=== PATIENT | male | born 1950 | race Two or more races ===

== ENCOUNTER 2017-03-15 01:10 | Inpatient (IN) | payer OTHER, MEDICARE ==
[2017-03-15] VITALS (18 sets, daily range): BP systolic 96–139; BP diastolic 58–83
[~2017-03-15] VITALS: Ht 170.2 cm; Wt 98.4 kg
--- NOTE | 2017-03-15 01:10 | NUR ---
TO BED 1 BIB PARAMEDICS C/O RAPID HEART RATE 220'S GETTERING FILAMENT MACHINE OPERATOR. PT WAS GIVEN 6MG ADENOSINE FOLLOWED BY 12MG ADENOSINE BY EMS GETTERING FILAMENT MACHINE OPERATOR WITHOUT ANY RELIEF. RECEIVE PTAAOX2 NO ACUTE DISTRESS NOTED, RESP EVEN AND UNLABORED. PLACE PT ON CARDIAC MONITORING, CONTINUOUS POX. NOTED PT HR-224. ER MD AT BEDSIDE TO EVAL PT WITH ORDERS RECEIVED. RN AT BEDSIDE TO MEDICATE PT. SKIN HOT TO TOUCH, NONDIAPHORETIC. STARTED SL 18G TO RAC, BLOOD DRAWN AND SENT TO LAB. SL 18G TO R HAND GETTERING FILAMENT MACHINE OPERATOR. WILL CONTINUE TO MONITOR PT CLOSELY.
[2017-03-15] MEDS ORDERED: DILTIAZEM HCL 25 MG IV ONE ×2 (01:14→01:36)
[2017-03-15] MEDS ORDERED: ACETAMINOPHEN ES 500 MG TABLET ONE (01:26)
[2017-03-15] MEDS ORDERED: ASPIRIN 325 MG TABLET ONE (01:26)
[2017-03-15] MEDS ORDERED: IV NS 0.9% 1,000 ML BAG IV ONE ×2 (01:30→04:30)
[2017-03-15] MEDS ORDERED: LEVOFLOXACIN 750 MG /D5W 150ML 150 ML IV ONE ×2 (01:30→01:47)
[2017-03-15] MEDS ORDERED: DILTIAZEM HCL 25 MG IV IV ONE (01:30)
[2017-03-15] MEDS ORDERED: ACETAMINOPHEN ES 500 MG TABLET PO ONE (01:30)
[2017-03-15] MEDS ORDERED: ASPIRIN 81 MG TAB.CHEW PO ONE (01:30)
[2017-03-15] MEDS ORDERED: DILTIAZEM HCL IV 125 MG in IV D5W 100 ML IV PRN ×2 (01:30→07:00)
[2017-03-15] MEDS ORDERED: DILTIAZEM HCL 50 MG IV ONE (01:36)
[2017-03-15 01:37] LABS: EOSINOPHILS % (AUTO) 0.1 % (0.0-6.0); HEMATOCRIT 45 % (39-51); HEMOGLOBIN 14.8 g/dL (13.5-17.5); LYMPHOCYTES # (AUTO) 0.9 /CMM (0.8-4.8); MEAN CORPUSCULAR HEMOGLOBIN 29 PG (26.0-33.0); MEAN CORPUSCULAR HGB CONC 33 g/dl (31.0-36.0); MEAN CORPUSCULAR VOLUME 87 fL (80-96); MONOCYTES # (AUTO) 0.6 /CMM (0.1-1.30); MONOCYTES % (AUTO) 5.2 % (2.0-12.0); NEUTROPHILS # (AUTO) 10.9 /CMM (1.8-8.9); NEUTROPHILS % (AUTO) 87.7 % (43.0-81.0); PLATELET COUNT (AUTO) 158 /CMM (150-450); RDW COEFFICIENT OF VARIATION 13.1 (11.5-15.0); RED BLOOD CELL COUNT(AUTO) 5.14 MIL/uL (4.5-6.0); WHITE BLOOD COUNT (AUTO) 12.4 K/uL (4.3-11.0)
[2017-03-15 01:48] LABS: ALANINE AMINOTRANSFERASE 45 U/L (12-78); ALBUMIN 2.7 g/dL (3.4-5.0); ALKALINE PHOSPHATASE 58 U/L (46-116); ASPARTATE AMINOTRANSFERASE 72 U/L (15-37); BILIRUBIN,DIRECT 0.3 mg/dL (0.0-0.2); CALCIUM, SERUM 8.3 mg/dL (8.5-10.1); CARBON DIOXIDE 20 mmol/L (21-32); CHLORIDE 94 mmol/L (98-107); CREATININE 1.6 mg/dL (0.6-1.3); GLUCOSE 334 mg/dL (74-106); POTASSIUM 3.4 mmol/L (3.5-5.1); SODIUM SERUM 130 mmol/L (136-145); UREA NITROGEN, BLOOD 23 mg/dL (7-18)
[2017-03-15 01:49] LABS: TROPONIN I 0.082 ng/mL (0.00-0.056)
[2017-03-15] MEDS ORDERED: VANCOMYCIN 1 GM in IV D5W 250 ML IV ONE (02:00)
[2017-03-15] MEDS ORDERED: PIPERACILLIN /TAZOBACTAM 3.375 G in IV D5W 50 ML IV ONE (02:00)
--- NOTE | 2017-03-15 02:01 | NUR ---
PT TRANSPORTED TO RADIOLOGY FOR CT HEAD AND CT CERVICAL.
[2017-03-15 02:04] LABS: INR 1.42 (0.87-1.13); PROTHROMBIN TIME 14.8 SECS (9.5-12.7)
--- NOTE | 2017-03-15 02:14 | NUR ---
PT BACK FROM RADIOLOGY. PENDING CT RESULTS.
--- NOTE | 2017-03-15 02:29 | NUR ---
PT SON AT BEDSIDE.
[2017-03-15 02:56] LABS: ABG BASE EXCESS -5.2 mmol/L; ABG OXYGEN SATURATION 91.8 % (92.0-98.5); ABG PCO2 23.5 mmHg (35.0-45.0); ABG PH 7.463 (7.350-7.450); ABG PO2 64.3 mmHg (75.0-100.0); COHb 0.6 % (0.5-1.5); MetHb 0.5 % (0.0-1.5); O2Hb 90.8 % (94.0-97.0); SITE, ABG LEFT ARM; VENT MODE, BG Room Air
[2017-03-15] MEDS ORDERED: PIPERACILLIN /TAZOBACTAM 3.375 G VIAL IV ONE (03:28)
[2017-03-15] MEDS ORDERED: VANCOMYCIN 1 GM VIAL ONE (03:51)
--- NOTE | 2017-03-15 03:58 | NUR ---
NOTED PT WITH WATERY DIARRHEA, TOTAL PT CARE DONE. ER MD MADE AWARE OF WATERY DIARRHEA.
--- NOTE | 2017-03-15 04:27 | NUR ---
GARY GABRIEL AT BEDSIDE TO RE-EVAL PT.
--- NOTE | 2017-03-15 04:37 | NUR ---
BOBY EPRP CALLED.
[2017-03-15] MEDS ORDERED: OSELTAMIVIR PHOSPHATE 75 MG CAPSULE PO ONE (05:00)
--- NOTE | 2017-03-15 05:29 | NUR ---
GARY GABRIEL TALKING TO BOBY DANG MD.
[2017-03-15] MEDS ORDERED: OSELTAMIVIR PHOSPHATE 75 MG CAPSULE ONE (05:31)
--- NOTE | 2017-03-15 05:34 | NUR ---
REPORT GIVEN TO JOHNNY RODRIGUEZ FOR CONTINUATION OF CARE.
--- NOTE | 2017-03-15 05:35 | NUR ---
Moise reynolds in ED - 03/15/17 at 0538 by LEXIE GARY PALMA TO BOBY DANG MD.
--- NOTE | 2017-03-15 05:43 | NUR ---
SAMUEL VANG PAGED PER ER MD ORDER.
--- NOTE | 2017-03-15 06:35 | NUR ---
BLACK OFF WORKER INITIAL NOTE RECEIVED REPORT FROM ALLAN RODRIGUEZ. PT BEING ADMITTED FOR SEPSIS, NSTEMI. PT TRANSPORTED TO ICU BY ED. PT IN [facility]. A/A/O X3. LUNG SOUNDS DIMINISHED. BOWEL SOUNDS PRESENT, WITH DIARRHEA. IV PATENT AND INTACT. PULSES PRESENT. RLE REDNESS AND EDEMA NOTED. BLE SCABS NOTED. PICTURES TAKEN AND PLACED IN CHART. REPOSITIONED FOR COMFORT. BED IN LOW LOCKED POSITION. CALL LIGHT WITHIN REACH. WILL CONTINUE TO MONITOR.
[2017-03-15] MEDS ORDERED: DEXTROSE 50%-WATER 50 ML DISP.SYRIN IV PRN (07:00)
[2017-03-15] MEDS ORDERED: ONDANSETRON HCL/PF 4 MG/2 ML VIAL IVP PRN (07:00)
[2017-03-15] MEDS ORDERED: IV NS 0.9% 1,000 ML IV PRN (07:00)
[2017-03-15] MEDS ORDERED: MAGNESIUM HYDROXIDE 30 ML UDC PO PRN (07:00)
[2017-03-15] MEDS ORDERED: Z GUARD REMEDY 2 OZ OINT TP PRN (07:00)
--- NOTE | 2017-03-15 07:00 | NUR ---
[employer] SPANISH TEACHER DR LACY AT BEDSIDE. PER DR REGINO CARDOZA TO D/C CARDIJJ. WILL FOLLOW THROUGH WITH THIS ORDER.
--- NOTE | 2017-03-15 07:15 | NUR ---
RESTAURANT LINE COOK INITIAL NOTE RN RECEIVED PATIENT IN BED RESTING PATIENT ON 2L NASAL CANULA TOLERATING WELL WITHOUT ANY ISSUES PATIENT IS AXOX4 ABLE TO MAKE NEEDS KNOWN IV CLEAN DRY AND INTACT. PATIENT CLEANED DUE TO SATURATED DIAPER PATIENT HAS NO NAUSEA OR VOMITING NOTED. STILL EXPERIENCING CHILLS
[2017-03-15] MEDS ORDERED: ATOR10TA PO (07:31)
[2017-03-15] MEDS ORDERED: METF500T4 PO (07:31)
[2017-03-15] MEDS ORDERED: AMLO5TAB4 PO (07:31)
[2017-03-15] MEDS ORDERED: TRAM50TA2 PO (07:31)
[2017-03-15] MEDS ORDERED: WARF3TAB6 PO (07:31)
[2017-03-15] MEDS ORDERED: METO25TA20 PO (07:31)
[2017-03-15] MEDS ORDERED: MONT10TA22 PO (07:31)
[2017-03-15] MEDS ORDERED: ALBU18HF2 IH (07:31)
[2017-03-15] MEDS ORDERED: CLOB15OI3 TP (07:31)
[2017-03-15] MEDS ORDERED: BECL8.7A6 IH (07:31)
[2017-03-15] MEDS ORDERED: SECU150P SQ (07:31)
[2017-03-15] MEDS ORDERED: DICL100G16 TP (07:31)
[2017-03-15 08:14] LABS: BASOPHILS % (AUTO) 0.1 % (0.0-2.0); HEMATOCRIT 41 % (39-51); HEMOGLOBIN 13.7 g/dL (13.5-17.5); LYMPHOCYTES # (AUTO) 1.1 /CMM (0.8-4.8); LYMPHOCYTES % (AUTO) 7.2 % (20.0-44.0); MEAN CORPUSCULAR HEMOGLOBIN 29 PG (26.0-33.0); MEAN CORPUSCULAR HGB CONC 34 g/dl (31.0-36.0); MEAN CORPUSCULAR VOLUME 86 fL (80-96); MONOCYTES # (AUTO) 0.5 /CMM (0.1-1.30); MONOCYTES % (AUTO) 3.1 % (2.0-12.0); NEUTROPHILS # (AUTO) 13.2 /CMM (1.8-8.9); NEUTROPHILS % (AUTO) 89.6 % (43.0-81.0); PLATELET COUNT (AUTO) 137 /CMM (150-450); RED BLOOD CELL COUNT(AUTO) 4.74 MIL/uL (4.5-6.0); WHITE BLOOD COUNT (AUTO) 14.8 K/uL (4.3-11.0)
[2017-03-15 08:49] LABS: CALCIUM, SERUM 7.5 mg/dL (8.5-10.1); CREATININE 1.1 mg/dL (0.6-1.3); MAGNESIUM 1.5 mg/dL (1.8-2.4); PHOSPHORUS 2.6 mg/dL (2.5-4.9); POTASSIUM 3.4 mmol/L (3.5-5.1)
[2017-03-15 08:57] LABS: THYROID STIMULATING HORMONE 0.408 uIU/mL (0.358-3.74)
[2017-03-15 09:13] LABS: APPEARANCE,URINE CLEAR (CLEAR); BILIRUBIN,URINE NEGATIVE (NEGATIVE); BLOOD, URINE 3+ Ery/uL (NEGATIVE); COLOR,URINE YELLOW (YELLOW); KETONES,URINE NEGATIVE (NEGATIVE); LEUKOCYTE ESTERASE ,URINE NEGATIVE (NEGATIVE); NITRITE, URINE NEGATIVE (NEGATIVE); PROTEIN,URINE 2+ mg/dl (NEGATIVE); UGLUCOSE NEGATIVE (NEGATIVE); UROBILINOGEN,URINE 0.2 EU/dL (0.2)
[2017-03-15 09:53] LABS: BACTERIA,URINE None seen /HPF (None Seen); SQUAMOUS EPITHELIAL CELL,UR None Seen /HPF (None Seen); WBC,URINE NONE SEEN /HPF (0-3)
[2017-03-15] MEDS: FUROSEMIDE 40 MG/4 ML VIAL IV SCH ×3 (10:12→15:15)
[2017-03-15] MEDS: METOPROLOL TARTRATE 50 MG TABLET PO SCH ×2 (10:14→21:34)
[2017-03-15] MEDS: BLOOD SUGAR DIAGNOSTIC 1 EACH STRIP IN SCH ×4 (10:14→21:35)
[2017-03-15] MEDS ORDERED: FEE PK DOSING 1 MIN EA MC ONE (10:48)
[2017-03-15] MEDS: HEPARIN SODIUM, PORCINE 5000 UNITS/1 ML VIAL SQ SCH ×2 (10:52→21:35)
--- NOTE | 2017-03-15 11:16 | NUR ---
RN NOTE DELAY IN MEDICATION DUE TO MEDICATION NOT BEING AVALABKLE RN WILL ADMINISTER WHEN DRUG IS AVAILABLE
[2017-03-15] MEDS: PIPERACILLIN /TAZOBACTAM 3.375 G in IV D5W 50 ML IV SCH ×3 (11:54→21:34)
[2017-03-15] MEDS: DIGOXIN INJ 0.5 MG/2 ML AMPUL IV SCH ×2 (11:55→19:09)
[2017-03-15] MEDS: POTASSIUM CL. PREMIX PERIPHER. 50 ML IV SCH ×2 (13:30→14:30)
[2017-03-15] MEDS: Magnesium 1GM/D5W 100ML PREMIX 100 ML IV SCH ×4 (14:11→19:46)
[2017-03-15] MEDS: ACETAMINOPHEN 325 MG TABLET PO PRN ×2 (14:24→20:01)
[2017-03-15] MEDS: MENTHOL/CETYLPYRD (CEPACOL) 1 LOZ LOZENGE PO PRN ×2 (14:28→20:01)
[2017-03-15] MEDS: VANCOMYCIN 1 GM in IV D5W 250 ML IV SCH (17:00)
--- NOTE | 2017-03-15 19:35 | NUR ---
RN CLOSING NOTE PATIENT STABLE AT THIS TIME VITALS SIGNS ASSESS PATIENT TEMP WNL PATIENT COMPLAINED OF SORE THROAT NO NAUSEA OR VOMITING NOTED. PATIENT ABLE TO MAKE NEEDS KNOW CONTINUED CARE ENDORSED TO PM RN PATIENT HAS HAD MULTIPLE URINATION HOWEVER NO BM THIS SHIFT. PATIENT MEDICATION STILL PENDING AWAITING MEDICATION FROM PHARMACY
--- NOTE | 2017-03-15 20:02 | NUR ---
RN NOTE IV POTASSIUM NOT ADMINISTERED DUE TO MEDICATION NOT BEING AVAILABLE PRN CONTACTED PHARMACY , TRANS ROUTER STATES THAT SHE WILL SEND WHEN AVAILABLE RN ENDORSED TO PM RN
[2017-03-15] MEDS ORDERED: POTASSIUM CHLORIDE 20 MEQ TAB.PRT.SR PO ONE ×2 (20:05→20:30)
[2017-03-15] MEDS: ZOLPIDEM TARTRATE 5 MG TABLET PO PRN (20:21)
--- NOTE | 2017-03-15 21:00 | NUR ---
RN NOTE RECEIVED ORDERS FROM SAMUEL FELDER TO GIVE POTASSIUM 40 MEQ AND TO CANCEL POTASSIUM IV DUE TO DRUG NOT AVAILABLE. READBACK ORDERS PERFORMED AND ORDERS PLACED IN EMAR.
[2017-03-15] MEDS: INSULIN REGULAR, HUMAN 100 UNIT/ML 3 ML VIAL SQ PRN (21:36)
[2017-03-16] VITALS (9 sets, daily range): BP systolic 100–137; BP diastolic 58–86
[2017-03-16] MEDS: ACETAMINOPHEN 325 MG TABLET PO PRN (00:30)
[2017-03-16] MEDS: DIGOXIN INJ 0.5 MG/2 ML AMPUL IV SCH (00:31)
[2017-03-16] MEDS: PIPERACILLIN /TAZOBACTAM 3.375 G in IV D5W 50 ML IV SCH ×4 (04:25→22:12)
[2017-03-16] MEDS: VANCOMYCIN 1 GM in IV D5W 250 ML IV SCH (04:26)
--- NOTE | 2017-03-16 05:00 | NUR ---
RN NOTE RECEIVED ORDERS TO DOWNGRADE PT TO TELE. PT IN STABLE CONDITION TO BE IN TELE LEVEL OF CARE. READBACK ORDERS PERFORMED.
[2017-03-16 05:30] LABS: BASOPHILS % (AUTO) 0.1 % (0.0-2.0); EOSINOPHILS % (AUTO) 0.2 % (0.0-6.0); HEMATOCRIT 44 % (39-51); HEMOGLOBIN 14.4 g/dL (13.5-17.5); LYMPHOCYTES % (AUTO) 5.5 % (20.0-44.0); MEAN CORPUSCULAR HEMOGLOBIN 29 PG (26.0-33.0); MEAN CORPUSCULAR HGB CONC 33 g/dl (31.0-36.0); MEAN CORPUSCULAR VOLUME 88 fL (80-96); MONOCYTES # (AUTO) 0.8 /CMM (0.1-1.30); MONOCYTES % (AUTO) 4.2 % (2.0-12.0); NEUTROPHILS # (AUTO) 16.6 /CMM (1.8-8.9); PLATELET COUNT (AUTO) 127 /CMM (150-450); RDW COEFFICIENT OF VARIATION 13.1 (11.5-15.0); RED BLOOD CELL COUNT(AUTO) 4.96 MIL/uL (4.5-6.0); WHITE BLOOD COUNT (AUTO) 18.4 K/uL (4.3-11.0)
[2017-03-16 05:47] LABS: CALCIUM, SERUM 8.3 mg/dL (8.5-10.1); MAGNESIUM 2.5 mg/dL (1.8-2.4); PHOSPHORUS 2.1 mg/dL (2.5-4.9)
[2017-03-16 05:52] LABS: POTASSIUM 3.8 mmol/L (3.5-5.1)
--- NOTE | 2017-03-16 06:15 | NUR ---
RN NOTE PT TRANSFERRED TO TELE FLOOR IN STABLE CONDITION. REPORT GIVEN TO JULIO CÉSAR RN FOR CONTINUITY OF CARE. ALL NEEDS MET, ALL ORDERS CARRIED OUT.
--- NOTE | 2017-03-16 06:45 | NUR ---
RN NOTES RECEIVED PATIENT FROM ICU IN STABLE CONDITION, ALERT AND ORIENTED X3. VS STABLE. NO C/ O PAIN AT THIS TIME. PATIENT IS ON NC 2 L PM. TELE READING AFIB IN 70'S. IV ACCESS ON RAC 18 G AND RFA 20 G PATENT AND INTACT, NO REDNESS OR INFILTRATION NOTED.SKIN CLEAN AND DRY. BED IN LOW AND LOCKED POSITION, SIDE RAILS X2. CALL LIGHT WITHIN EASY REACH. WILL ENDORSE TO RN DAY SHIFT FOR SUJATHA.
[2017-03-16] MEDS: BLOOD SUGAR DIAGNOSTIC 1 EACH STRIP IN SCH ×4 (07:30→22:32)
--- NOTE | 2017-03-16 07:30 | NUR ---
RN NOTES BS 128. NO INSULIN ADMINISTERED PRN. CONTINUE TO MONITOR.
--- NOTE | 2017-03-16 07:30 | NUR ---
RIVETING MACHINE OPERATOR AUTOMATIC OPENING NOTES RECEIVED PATIENT IN STABLE CONDITION. IN NO APPARENT DISTRESS. BEDSIDE RAILS ARE UP X2. BED IS LOCKED AND LOWERED. WILL CONTINUE TO MONITOR. CALL LIGHT IS WITHIN REACH.
[2017-03-16] MEDS: INSULIN REGULAR, HUMAN 100 UNIT/ML 3 ML VIAL SQ PRN ×4 (07:31→22:53)
[2017-03-16] MEDS: METOPROLOL TARTRATE 50 MG TABLET PO SCH ×2 (09:15→22:17)
[2017-03-16] MEDS: HEPARIN SODIUM, PORCINE 5000 UNITS/1 ML VIAL SQ SCH ×3 (09:17→22:32)
[2017-03-16] MEDS: ALBUTEROL FS 2.5 MG/0.5 ML VIAL.NEB NEB PRN (13:18)
[2017-03-16] MEDS: IPRATROPIUM NEB FS 0.5 MG/2.5 ML AMPUL.NEB NEB PRN (13:18)
[2017-03-16] MEDS ORDERED: K PHOS NEUTRAL 250 MG TABLET PO ONE (13:30)
[2017-03-16] MEDS: LACTOBACILLUS RHAMNOSUS GG 1 EACH CAP.SPRINK PO SCH (17:02)
[2017-03-16] MEDS: DIGOXIN 0.125 MG TABLET PO SCH (17:02)
[2017-03-16] MEDS: HYDROCODONE/APAP 5/325MG 1 EACH TABLET PO PRN (17:04)
--- NOTE | 2017-03-16 19:00 | NUR ---
MS RN CLOSING NOTES PATIENT IS IN STABLE CONDITION. IN NO APPARENT DISTRESS. BEDSIDE RAILS ARE UP X2. BED IS LOCKED AND LOWERED. WILL ENDORSE CARE TO CLEANER AND TRIMMER NURSE FOR SUJATHA.
--- NOTE | 2017-03-16 19:20 | NUR ---
PHYSICIAN SCIENTIST OPENING NOTES RECEIVED PATIENT IN STABLE CONDITION. NO DISTRESS NOR SOB NOTED. BEDSIDE RAILS ARE UP X2. BED IS LOCKED AND LOWERED. WILL CONTINUE TO MONITOR. CALL LIGHT IS WITHIN REACH.
[2017-03-17 00:01] VITALS: BP 122/70
[2017-03-17] MEDS ORDERED: INSULIN REGULAR, HUMAN 100 UNIT/ML 3 ML VIAL ONE (00:15)
[2017-03-17] MEDS: IPRATROPIUM NEB FS 0.5 MG/2.5 ML AMPUL.NEB NEB PRN ×3 (01:26→13:50)
[2017-03-17] MEDS: ALBUTEROL FS 2.5 MG/0.5 ML VIAL.NEB NEB PRN ×3 (01:26→13:50)
[2017-03-17] MEDS: PIPERACILLIN /TAZOBACTAM 3.375 G in IV D5W 50 ML IV SCH ×4 (03:31→21:23)
[2017-03-17 04:00] VITALS: BP 115/77
[2017-03-17] MEDS: VANCOMYCIN 1.25 GM in IV D5W 500 ML IV SCH ×2 (06:21→17:13)
[2017-03-17] MEDS: BLOOD SUGAR DIAGNOSTIC 1 EACH STRIP IN SCH ×4 (06:28→21:43)
[2017-03-17] MEDS: INSULIN REGULAR, HUMAN 100 UNIT/ML 3 ML VIAL SQ PRN ×3 (06:30→17:17)
[2017-03-17 06:45] LABS: BASOPHILS % (AUTO) 0.3 % (0.0-2.0); EOSINOPHILS # (AUTO) 0.1 /CMM (0.0-0.7); EOSINOPHILS % (AUTO) 0.7 % (0.0-6.0); HEMATOCRIT 39 % (39-51); HEMOGLOBIN 14.3 g/dL (13.5-17.5); LYMPHOCYTES # (AUTO) 1.1 /CMM (0.8-4.8); LYMPHOCYTES % (AUTO) 7.1 % (20.0-44.0); MEAN CORPUSCULAR HEMOGLOBIN 33 PG (26.0-33.0); MEAN CORPUSCULAR HGB CONC 37 g/dl (31.0-36.0); MEAN CORPUSCULAR VOLUME 88 fL (80-96); MONOCYTES # (AUTO) 0.9 /CMM (0.1-1.30); MONOCYTES % (AUTO) 5.6 % (2.0-12.0); NEUTROPHILS # (AUTO) 13.6 /CMM (1.8-8.9); NEUTROPHILS % (AUTO) 86.3 % (43.0-81.0); PLATELET COUNT (AUTO) 139 /CMM (150-450); RDW COEFFICIENT OF VARIATION 13.3 (11.5-15.0); RED BLOOD CELL COUNT(AUTO) 4.38 MIL/uL (4.5-6.0); WHITE BLOOD COUNT (AUTO) 15.7 K/uL (4.3-11.0)
--- NOTE | 2017-03-17 06:48 | NUR ---
CREDIT RATING CHECKER NOTES PT IS RESTING COMFORTABLY AT THIS TIME, AROUSES EASILY, PT IS A/O X3. NO SOB OR SIGNS OF DISTRESS NOTED. BREATHING IS EVEN AND UNLABORED. PT DENIES ANY PAIN AT THIS TIME. IV SITES PATENT AND INTACT. NO REDNESS OR SIGNS OF INFILTRATION NOTED. BED IN LOW LOCKED POSITION, SIDE RAILS UP X2, CALL LIGHT WITHIN REACH. WILL ENDORSE TO NEXT SHIFT FOR SUJATHA.
[2017-03-17 07:10] LABS: DIGOXIN 0.64 ng/mL (0.90-2.00)
--- NOTE | 2017-03-17 07:10 | NUR ---
ORACLE BRM DEVELOPER OPENING NOTES RECEIVED PT FROM NIGHTSHIFT NURSE IN STABLE CONDITION. PT IS A/O X3. NO SOB OR SIGNS OF DISTRESS NOTED. BREATHING IS EVEN AND UNLABORED. PT DENIES ANY PAIN AT THIS TIME. HE IS AFIB ON THE TELE MONITOR WITH A HR OF 92. MULTIPLE IV NOTED TO RIGHT AC AND RIGHT HAND. IVS ARE PATENT AND INTACT. NO REDNESS OR SIGNS OF INFILTRATION NOTED TO EITHER. BED IN LOW LOCKED POSITION, SIDE RAILS UP X2, CALL LIGHT WITHIN REACH. WILL CONTINUE TO MONITOR
[2017-03-17 07:13] LABS: CALCIUM, SERUM 8.3 mg/dL (8.5-10.1); CREATININE 0.9 mg/dL (0.6-1.3); MAGNESIUM 1.7 mg/dL (1.8-2.4); PHOSPHORUS 1.9 mg/dL (2.5-4.9)
[2017-03-17 07:22] LABS: POTASSIUM 3.5 mmol/L (3.5-5.1)
[2017-03-17 08:00] VITALS: BP 115/77
[2017-03-17] MEDS: MENTHOL/CETYLPYRD (CEPACOL) 1 LOZ LOZENGE PO PRN ×3 (08:52→16:10)
[2017-03-17] MEDS: LACTOBACILLUS RHAMNOSUS GG 1 EACH CAP.SPRINK PO SCH ×2 (08:53→16:10)
[2017-03-17] MEDS: METOPROLOL TARTRATE 50 MG TABLET PO SCH ×2 (08:54→21:23)
[2017-03-17] MEDS: HEPARIN SODIUM, PORCINE 5000 UNITS/1 ML VIAL SQ SCH ×2 (09:00→21:22)
--- NOTE | 2017-03-17 11:20 | NUR ---
RN MS NOTES, RECEIVED PATIENT FROM MS FLOOR AFTER RECEIVED REPORT FROM MEEK RODRIGUEZ, PATIENT A/O X 3, ABLE TO COMMUNICATE NEEDS AND CONCERNS, BREATHING EVEN AND UNLABORED, NO SOB OR ACUTE DISTRESS NOTED AT THIS TIME, ON O2 @ 2LPM VIA NC, IN STABLE CONDITION ACCOMPANIED BY 2 STAFF, UPON ASSESSMENT NOTED WITH BLE CELLULITIS, MORE PROMINENT IN RIGHT LEG, KEPT DRY AND CLEAN, BED LOCKED AND LOWEST POSITION, IV SITE INTACT AND PATENT, CALL LIGHT W/I REACH, WILL CONTINUE TO MONITOR CLOSELY VS 112/72, 98.6, 81, 20, 96%, @ 2LPM VIA NC, .
[2017-03-17] MEDS: DIGOXIN 0.125 MG TABLET PO SCH (12:35)
[2017-03-17] MEDS: Magnesium 1GM/D5W 100ML PREMIX 100 ML IV SCH ×2 (13:06→14:27)
[2017-03-17] MEDS ORDERED: K PHOS NEUTRAL 250 MG TABLET PO ONE ×2 (14:30→15:00)
[2017-03-17 16:00] VITALS: BP 123/75
[2017-03-17] MEDS ORDERED: VITAMINS A AND D 56.7 GM TUBE TP PRN (16:30)
[2017-03-17] MEDS: MUPIROCIN OINT 2% 22 GM TUBE TP SCH (18:48)
[2017-03-17] MEDS: HYDROCODONE/APAP 5/325MG 1 EACH TABLET PO PRN (18:51)
--- NOTE | 2017-03-17 19:25 | NUR ---
MS RN CLOSING NOTES PT REMAINS IN STABLE CONDITION. ALL NEEDS MET DURING SHIFT AND ORDERS CARRIED OUT ACCORDINGLY. ALL DUE MEDS GIVEN. SAFETY MEASURES REMAIN IN PLACE. WILL ENDORSE TO NIGHTSHIFT NURSE FOR SUJATHA
--- NOTE | 2017-03-17 19:30 | NUR ---
SALES CORRESPONDENCE CLERK NOTE, RECEIVED PATIENT AWAKE AND IN BED, PATIENT HAS COMPLAINT OF RIGHT LOWER LEG PAIN AT 5 OUT 10 ON THE PAIN SCALE. PATIENT IS TAKING ORAL PAIN MEDICATION FOR THIS PAIN. PATIENT BREATHING IS UNLABORED WITH EQUAL RISE AND FALL OF THE CHEST. PATIENT IS ALERT AND ORIENTED X 3 ON ROOM AIR WITH A SPOO2 99 %. PATIENT HAS RIGHT AC 18 GAUGE SALINE LOCK THAT IS INTACT, PATENT, AND FLUSHING WELL WITH NO S/S OF INFILTRATION. PATIENT ASSISTED WITH TURNING AND REPOSITIONING Q2HR AND PRN FOR COMFORT AND CIRCULATION. PATIENT HAS NO NEEDS AT THIS TIME. PATIENT EDUCATED ON THE USE OF THE CALL LIGHT. PATIENT BED SIDE RAILS UP X 2 FOR SAFETY. PATIENT BED IS LOCKED AND LOW WILL CONTINUE TO MONITOR AND MAINTAIN SAFETY Q15 MIN WITH THE HELP OF STAFF.
[2017-03-17 20:55] VITALS: BP 111/62
--- NOTE | 2017-03-17 21:42 | NUR ---
SLAG EXPANDER NOTE, PERFORMED ACCU CHECK ON PATIENT WITH A BLOOD SUGAR RESULT OF 125 NO INSULIN GIVEN PER SLIDING SCALE. WILL CONTINUE TO MONITOR THIS PATIENT.
--- NOTE | 2017-03-17 23:15 | NUR ---
BUNCH BREAKER NOTE, PATIENT AWAKE AND IN BED, PATIENT HAS COMPLAINT OF RIGHT LOWER LEG PAIN AT 3 OUT 10 ON THE PAIN SCALE. PATIENT IS TAKING ORAL PAIN MEDICATION FOR THIS PAIN. PATIENT BREATHING IS UNLABORED WITH EQUAL RISE AND FALL OF THE CHEST. PATIENT IS ALERT AND ORIENTED X 3 ON ROOM AIR WITH A SPOO2 99 %. PATIENT HAS RIGHT AC 18 GAUGE SALINE LOCK THAT IS INTACT, PATENT, AND FLUSHING WELL WITH NO S/S OF INFILTRATION. PATIENT ASSISTED WITH TURNING AND REPOSITIONING Q2HR AND PRN FOR COMFORT AND CIRCULATION. PATIENT HAS NO NEEDS AT THIS TIME. PATIENT TRANSFERRED TO ROOM 106-1 IN SABLE CONDITION. REPORT GIVEN KANIKA RODRIGUEZ. KANIKA RODRIGUEZ WILL CONTINUE CARE FOR THIS PATIENT.
[2017-03-18] MEDS: HYDROCODONE/APAP 5/325MG 1 EACH TABLET PO PRN (00:55)
[2017-03-18] MEDS: ZOLPIDEM TARTRATE 5 MG TABLET PO PRN (00:59)
[2017-03-18] MEDS: PIPERACILLIN /TAZOBACTAM 3.375 G in IV D5W 50 ML IV SCH ×4 (03:28→21:26)
[2017-03-18 04:31] LABS: BASOPHILS # (AUTO) 0.1 /CMM (0.0-0.2); BASOPHILS % (AUTO) 0.5 % (0.0-2.0); EOSINOPHILS # (AUTO) 0.5 /CMM (0.0-0.7); EOSINOPHILS % (AUTO) 3.4 % (0.0-6.0); HEMATOCRIT 39 % (39-51); HEMOGLOBIN 13.1 g/dL (13.5-17.5); LYMPHOCYTES # (AUTO) 1.6 /CMM (0.8-4.8); LYMPHOCYTES % (AUTO) 10.3 % (20.0-44.0); MEAN CORPUSCULAR HEMOGLOBIN 29 PG (26.0-33.0); MEAN CORPUSCULAR HGB CONC 33 g/dl (31.0-36.0); MEAN CORPUSCULAR VOLUME 88 fL (80-96); MONOCYTES # (AUTO) 1.1 /CMM (0.1-1.30); MONOCYTES % (AUTO) 6.7 % (2.0-12.0); NEUTROPHILS # (AUTO) 12.5 /CMM (1.8-8.9); NEUTROPHILS % (AUTO) 79.1 % (43.0-81.0); PLATELET COUNT (AUTO) 185 /CMM (150-450); RDW COEFFICIENT OF VARIATION 12.9 (11.5-15.0); RED BLOOD CELL COUNT(AUTO) 4.45 MIL/uL (4.5-6.0); WHITE BLOOD COUNT (AUTO) 15.8 K/uL (4.3-11.0)
[2017-03-18] MEDS: MUPIROCIN OINT 2% 22 GM TUBE TP SCH ×2 (04:37→16:30)
[2017-03-18 04:59] LABS: CALCIUM, SERUM 8.2 mg/dL (8.5-10.1); CREATININE 0.9 mg/dL (0.6-1.3); MAGNESIUM 1.9 mg/dL (1.8-2.4); PHOSPHORUS 3.1 mg/dL (2.5-4.9)
[2017-03-18 05:13] LABS: POTASSIUM 3.4 mmol/L (3.5-5.1)
[2017-03-18] MEDS: VANCOMYCIN 1.25 GM in IV D5W 500 ML IV SCH (06:20)
[2017-03-18 07:27] LABS: CALCIUM, SERUM 8.2 mg/dL (8.5-10.1); CREATININE 0.8 mg/dL (0.6-1.3); POTASSIUM 3.5 mmol/L (3.5-5.1)
[2017-03-18] MEDS: BLOOD SUGAR DIAGNOSTIC 1 EACH STRIP IN SCH ×4 (07:30→21:40)
[2017-03-18] MEDS: LACTOBACILLUS RHAMNOSUS GG 1 EACH CAP.SPRINK PO SCH ×2 (10:16→17:00)
[2017-03-18] MEDS: ACETAMINOPHEN 325 MG TABLET PO PRN (10:16)
[2017-03-18] MEDS: METOPROLOL TARTRATE 50 MG TABLET PO SCH ×2 (10:18→21:26)
[2017-03-18] MEDS: HEPARIN SODIUM, PORCINE 5000 UNITS/1 ML VIAL SQ SCH ×2 (10:23→21:27)
[2017-03-18] MEDS: INSULIN REGULAR, HUMAN 100 UNIT/ML 3 ML VIAL SQ PRN ×4 (10:35→21:38)
[2017-03-18] MEDS ORDERED: POTASSIUM CHLORIDE 20 MEQ TAB.PRT.SR PO SCH (11:30)
[2017-03-18] MEDS: DIGOXIN 0.125 MG TABLET PO SCH (13:59)
[2017-03-18] MEDS: VANCOMYCIN 1 GM in IV D5W 250 ML IV SCH (15:00)
[2017-03-18 16:00] VITALS: BP 106/70
[2017-03-18] MEDS ORDERED: IV NS 0.9% 250 ML IV ONE (16:48)
[2017-03-18] MEDS ORDERED: CT SWABBABLE VALVE TRANS SET 1 EA INFUS.SET MC ONE (16:48)
[2017-03-18] MEDS ORDERED: IOHEXOL-300 100 ML VIAL IV ONE (16:48)
[2017-03-19] MEDS: ZOLPIDEM TARTRATE 5 MG TABLET PO PRN (00:17)
[2017-03-19] MEDS: PIPERACILLIN /TAZOBACTAM 3.375 G in IV D5W 50 ML IV SCH ×3 (02:42→16:03)
[2017-03-19] MEDS: VANCOMYCIN 1 GM in IV D5W 250 ML IV SCH ×2 (03:20→15:00)
[2017-03-19] MEDS: MUPIROCIN OINT 2% 22 GM TUBE TP SCH ×2 (03:27→16:30)
[2017-03-19 06:47] LABS: BASOPHILS % (AUTO) 0.5 % (0.0-2.0); EOSINOPHILS % (AUTO) 4.6 % (0.0-6.0); HEMATOCRIT 41 % (39-51); HEMOGLOBIN 13.8 g/dL (13.5-17.5); LYMPHOCYTES % (AUTO) 13.7 % (20.0-44.0); MEAN CORPUSCULAR HEMOGLOBIN 30 PG (26.0-33.0); MEAN CORPUSCULAR HGB CONC 34 g/dl (31.0-36.0); MEAN CORPUSCULAR VOLUME 89 fL (80-96); MONOCYTES % (AUTO) 8.1 % (2.0-12.0); NEUTROPHILS % (AUTO) 73.1 % (43.0-81.0); PLATELET COUNT (AUTO) 222 /CMM (150-450); RDW COEFFICIENT OF VARIATION 13.9 (11.5-15.0); RED BLOOD CELL COUNT(AUTO) 4.61 MIL/uL (4.5-6.0); WHITE BLOOD COUNT (AUTO) 10.4 K/uL (4.3-11.0)
[2017-03-19 06:48] LABS: BASOPHILS # (AUTO) 0.1 /CMM (0.0-0.2); EOSINOPHILS # (AUTO) 0.5 /CMM (0.0-0.7); LYMPHOCYTES # (AUTO) 1.4 /CMM (0.8-4.8); MONOCYTES # (AUTO) 0.8 /CMM (0.1-1.30); NEUTROPHILS # (AUTO) 7.6 /CMM (1.8-8.9)
[2017-03-19 07:06] LABS: CALCIUM, SERUM 8.3 mg/dL (8.5-10.1); CREATININE 0.8 mg/dL (0.6-1.3); MAGNESIUM 1.7 mg/dL (1.8-2.4); PHOSPHORUS 2.8 mg/dL (2.5-4.9); POTASSIUM 3.7 mmol/L (3.5-5.1)
--- NOTE | 2017-03-19 07:36 | NUR ---
WOUND CARE CONSULT WOUND CARE RECEIVED CONSULT FOR RIGHT LOWER LEG EVALUATION. WOUND CARE WILL DEFER TO SURGICAL TEAM INCLUDING PODIATRY FOR TREATMENT PLAN FOR THE RLE. PATIENT WITH CURRENT IGNACIO AT 19.
[2017-03-19 08:00] VITALS: BP 129/76
[2017-03-19] MEDS: BLOOD SUGAR DIAGNOSTIC 1 EACH STRIP IN SCH ×3 (08:52→17:30)
[2017-03-19] MEDS: ACETAMINOPHEN 325 MG TABLET PO PRN ×2 (08:55→20:44)
[2017-03-19] MEDS: LACTOBACILLUS RHAMNOSUS GG 1 EACH CAP.SPRINK PO SCH ×2 (08:55→17:00)
[2017-03-19] MEDS: METOPROLOL TARTRATE 50 MG TABLET PO SCH (08:56)
[2017-03-19] MEDS: INSULIN REGULAR, HUMAN 100 UNIT/ML 3 ML VIAL SQ PRN ×2 (08:59→12:52)
[2017-03-19] MEDS: HEPARIN SODIUM, PORCINE 5000 UNITS/1 ML VIAL SQ SCH (09:11)
[2017-03-19] MEDS ORDERED: Magnesium 1GM/D5W 100ML PREMIX 100 ML IV SCH (11:00)
--- NOTE | 2017-03-19 11:05 | NUR ---
MS RN NOTES. PT WITH CONTACT, DROPLET PRECS R/T: INFULENZA. PT A&0X3 RESTING IN HIGH SEMI FOWLERS, EASILY AWOKEN BY NAME. PT WITH O2 VIA NC AT 2LPM WITHOUT SOB AND SAO2 99%. PT REPORTING MINOR HEADACHE AND REQUESTING TYLENOL. PT WITH IVC AT R AC G#20 INTACT AND OPERATIONAL. PT REPO Q2 WITH ENERGY EFFICIENT SITE MANAGER. BED IN LOWEST LOCKED POSITION WITH HAND RAILS X2 AND CALL SHAW WITHIN REACH. PT BRIEFED ON TODAY'S POC AND IS WITHOUT CONCERN OR COMPLIANT AT THIS TIME.
[2017-03-19] MEDS ORDERED: Digoxin PO (12:31)
[2017-03-19] MEDS ORDERED: METO50TA16 PO (12:31)
[2017-03-19] MEDS ORDERED: WARF5TAB6 PO (12:31)
[2017-03-19] MEDS ORDERED: LEVO750T21 PO (12:33)
--- NOTE | 2017-03-19 13:00 | NUR ---
MS RN NOTES. PT TO BE PREPARED FOR D/C PER .
[2017-03-19] MEDS: DIGOXIN 0.125 MG TABLET PO SCH (13:31)
[2017-03-19 16:00] VITALS: BP 135/73
--- NOTE | 2017-03-19 16:23 | NUR ---
RN NOTE RN CONTACTED PHARMACY IN REGARDS TO PATIENT REQUESTING PRN COUGH DROPS , ALSO RN CONTACTED ST IN REGARDS TO PATIETN REQUEST PRN BREATHING TREATMENT FOR SOB. PATIENT STATES HE DOESN'T FEEL WELL RN NOTIFIED
[2017-03-19] MEDS ORDERED: SULF1TAB48 PO (16:37)
[2017-03-19] MEDS ORDERED: WARF4TAB6 PO (16:40)
[2017-03-19] MEDS: IPRATROPIUM NEB FS 0.5 MG/2.5 ML AMPUL.NEB NEB PRN (17:00)
[2017-03-19] MEDS: ALBUTEROL FS 2.5 MG/0.5 ML VIAL.NEB NEB PRN (17:00)
[2017-03-19] MEDS: MENTHOL/CETYLPYRD (CEPACOL) 1 LOZ LOZENGE PO PRN (18:46)
--- NOTE | 2017-03-19 19:39 | NUR ---
MS RN NOTES. PT WITH CONTACT, DROPLET PRECS R/T: INFLUENZA. PT A&0X3 RESTING IN HIGH SEMI FOWLERS, PT READY FOR D/C AND REMAINS WAITING FOR EMT TRANSPORT. PT TOLERATING ROOM AIR WITH NO SOB AND SAO2 WNL. PT REPORTING NO PAIN. D/C WOUND DOCUMENTATION COMPLETED, MD PREFORMED BEDSIDE DEBRIDEMENT AND BANDAGING, BANDAGE NO UNDONE TO RE-PHOTO PER MD. PT BREIFED ON SOH D/C PACKET AND PT AND PT SON VERBALIZING RESOURCES, UNDERSTANDING AND INTENT TO FOLLOW D/C POC. PT SON WAITING AT HOUSE TO RECEIVE PT. BED IN LOWEST LOCKED POSITION WITH HAND RAILS X2 AND CALL SHAW WITHIN REACH. PT ENDORSED TO NIGHT NURSE FOR SUJATHA WHILST PT IS WAITING FOR EMT TRANSPORT. Addendum: 03/19/17 at 1954 by GREGORIO MARLOW RN MULTIPLE AFTERNOON MEDICATION REFUSED PT READY AND WAITING FOR EMT TRANSPORT.
--- NOTE | 2017-03-19 20:00 | NUR ---
MS RN NOTES AWAKE & RESPONSIVE. NOT IN ANY DISTRESS. NO SOB NOTED. DENIES ANY PAIN OR DISCOMFORT AT THIS TIME. WITH IV-HL PATENT & INTACT. PT FOR D/C HOME. AWAITING FOR AMBULANCE. WILL CALL AMBULANCE TO F/U. CALL LIGHT WITHIN REACH. BED IN LOWEST POSITION. SR UP X 3 FOR SAFETY. WILL ENDORSE TO NEXT SHIFT.
--- NOTE | 2017-03-19 20:10 | NUR ---
MS RN NOTES CALLED AMBULANCE. ETA IS 2029. NOTIFIED PT. WILL CONTINUE TO MONITOR.
--- NOTE | 2017-03-19 20:45 | NUR ---
MS RN NOTES AMBULANCE CAME IN TO [employer] PT. PT NOT IN ANY DISTRESS. NO SOB NOTED. VSS. AFEBRILE. D/C INSTRUCTIONS PROVIDED. BELONGINGS SENT HOME WITH PT WELL PRESCRIPTIONS. REPORT GIVEN TO AMBULANCE PERSONNEL FOR CONTINUITY OF CARE. ENDORSED ACCORDINGLY.
== END 2017-03-19 20:45 | disposition home or self-care (01) | DRG 853 ==
LOC: ER 01:12 → ICU 06:35 → TELE 03-16 05:53 → MED 03-17 12:42 → MEDSG1 03-17 23:10
PROVIDERS: ADMIT Nurse Practitioner Acute Care; ATTEND Nurse Practitioner Acute Care
PROC: 0JBN0ZZ Excision of Right Lower Leg Subcutaneous Tissue and Fascia, Open Approach (ICD-10-PCS; principal; 2017-03-19)
DX: A41.9 Sepsis, unspecified organism (principal); G93.41 Metabolic encephalopathy; I21.A1 Myocardial infarction type 2; I50.33 Acute on chronic diastolic (congestive) heart failure; E44.0 Moderate protein-calorie malnutrition; J18.9 Pneumonia, unspecified organism; D68.59 Other primary thrombophilia; N17.9 Acute kidney failure, unspecified; E11.22 Type 2 diabetes mellitus with diabetic chronic kidney disease; L03.115 Cellulitis of right lower limb; I13.0 Hypertensive heart and chronic kidney disease with heart failure and stage 1 through stage 4 chronic kidney disease, or unspecified chronic kidney disease; E87.1 Hypo-osmolality and hyponatremia; E87.2 Acidosis; D69.6 Thrombocytopenia, unspecified; E11.65 Type 2 diabetes mellitus with hyperglycemia; E86.0 Dehydration; R65.20 Severe sepsis without septic shock; B34.9 Viral infection, unspecified; Z86.73 Personal history of transient ischemic attack (TIA), and cerebral infarction without residual deficits; Z79.4 Long term (current) use of insulin; Z79.01 Long term (current) use of anticoagulants; N18.9 Chronic kidney disease, unspecified; E87.6 Hypokalemia; J44.9 Chronic obstructive pulmonary disease, unspecified; I48.91 Unspecified atrial fibrillation; J06.9 Acute upper respiratory infection, unspecified; E66.01 Morbid (severe) obesity due to excess calories; Z68.34 Body mass index [BMI] 34.0-34.9, adult; I87.8 Other specified disorders of veins; L40.9 Psoriasis, unspecified; Z79.899 Other long term (current) drug therapy; Z79.84 Long term (current) use of oral hypoglycemic drugs
CPT/HCPCS: 36415; 36600; 70450-TC; 71010-TC; 73701-TC; 80048-TC; 80061-TC; 80076-TC; 80162-TC; 80202-TC; 81000-TC; 82306; 82962-TC; 83605-TC; 83735-TC; 84100-TC; 84439-TC; 84443-TC; 84484-TC; 85025-TC; 85730-TC; 86850-TC; 87040-TC; 87081-TC; 87400; 93307-TC; 93971-TC; 97116-TC; 97530-TC; A6402; J1160; J1644; J1815; J1940; J1956; J2405; J2543; J3370; J3475; J3490; J7030; J7040; J7050; J7060; Q9967